=== PATIENT | female | born 1935 | race Hispanic/Latino ===

== ENCOUNTER 2017-03-18 08:04 | Day surgery (SDC) | payer MEDICARE, MEDICAID ==
[2017-03-17 11:39] VITALS: BMI 17.7
--- NOTE | 2017-03-18 01:47 | HP ---
REASON FOR ADMISSION: Left heart cath, possible angioplasty, abnormal stress test. BRIEF CLINICAL HISTORY: This is an 81-year-old female with past medical history of hypertension, significant TAVR at the [facility] on 11/23/2013 for critical aortic stenosis. Complaining of chest pain, so the patient was underwent a stress test and that showed anteroseptal reversible ischemia. The patient is scheduled for elective cardiac cath, possible angioplasty. PAST MEDICAL HISTORY: Past history significant for status post TAVR on 10/20/2014. Repeat echo post-TAVR showed ejection fraction of 65% to 70%. Trace aortic regurgitation, mild mitral regurgitation, mild tricuspid regurgitation with systolic pressure of 40. PREVIOUS CARDIAC WORKUP: As follows: The patient had a stress test dated 02/25/2017 that shows reversible ischemia, ejection fraction 74%. History of echo dated 10/22 that shows normal ejection fraction of 65% to 70% status post TAVR, trace aortic regurgitation, mild mitral regurgitation, mild tricuspid regurgitation. REVIEW OF SYSTEMS: As follows: As per HPI, otherwise negative. CURRENT MEDICATIONS: The patient is taking metoprolol 25, hydrochlorothiazide, aspirin 81 mg daily. PHYSICAL EXAMINATION VITAL SIGNS: Temperature afebrile, heart rate 60, blood pressure 145/65. HEENT: PERRLA, intact. NECK: Supple. No carotid bruit or thyromegaly. CHEST: Clear to auscultation. HEART: S1 and S2. Regular. ABDOMEN: Soft. EXTREMITIES: Clubbing and cyanosis negative. LABORATORY DATA: Blood workup is pending today. IMPRESSION: Abnormal stress test, status post transcatheter aortic valve replacement. Pre transcatheter aortic valve replacement, no significant coronary artery disease. Further recommendation after the cardiac catheterization, we will follow with you. Tres Catalan MD
[2017-03-18 08:43] LABS: BASO # 0.02 K/mm3 (0.0-2.0); BASO % 0.4 % (0.0-3.0); EOS # 0.1 (0.0-0.7); EOS % 2.1 % (1.5-5.0); GRAN # 2.53 (1.4-6.5); GRAN % 53.2 % (50.0-68.0); HEMATOCRIT 38.5 % (36.0-48.0); LYMPH # 1.8 (1.2-3.4); LYMPH % 37.2 % (22.0-35.0); MEAN CELL VOLUME 88.3 fl (80.0-105.0); MEAN CORPUSCULAR HEMOGLOBIN 29.6 pg (25.0-35.0); MEAN CORPUSCULAR HGB CONC 33.5 g/dl (31.0-37.0); MEAN PLATELET VOLUME 9.8 fl (7.0-11.0); MONO # 0.3 (0.1-0.6); MONO % 7.1 % (1.0-6.0); RED CELL DISTRIBUTION WIDTH 13.5 % (11.5-14.5); WHITE BLOOD COUNT 4.8 10^3/ul (4.5-11.0)
[2017-03-18 08:52] LABS: BLOOD UREA NITROGEN 21 mg/dL (7-21); CARBON DIOXIDE 25 mmol/L (21-33); CHLORIDE 108 mmol/L (98-107); CHOLESTEROL 217 mg/dL (130-200); GFR AFRICAN-AMERICAN > 60; GLUCOSE,RANDOM 96 mg/dL (70-110); POTASSIUM 4.1 mmol/L (3.6-5.0); SODIUM 142 mmol/L (132-148)
[2017-03-18 09:01] LABS: INR 1.05 (0.93-1.08); PARTIAL THROMBOPLASTIN TIME 29.9 Seconds (25.1-36.5)
[2017-03-18 09:02] VITALS: RESP 18
[2017-03-18] MEDS ORDERED: Midazolam 2 MG/2 ML VIAL ONE (10:18)
[2017-03-18] MEDS ORDERED: Iodixanol 320 MG/ML 100 ML BOTTLE IV ONE (10:19)
[2017-03-18] MEDS ORDERED: Iodixanol 320 MG/ML 200 ML BOTTLE IV ONE (10:19)
[2017-03-18] MEDS ORDERED: Iohexol 350mgl/ml 50 ML ONE (10:19)
[2017-03-18] MEDS ORDERED: Lidocaine 2% Inj (20ml) ONE (10:20)
[2017-03-18] MEDS ORDERED: Sodium Chloride 0.9% 1,000 ML IV SCH (11:45)
[2017-03-18 11:59] VITALS: TEMP 97.9
[2017-03-18 14:27] VITALS: O2SAT 97
[2017-03-18 15:33] VITALS: BP 138/75; PULSE 64
--- NOTE | 2017-03-18 16:32 | CARD ---
APPROVED REPORT Procedure(s) performed: Coronary Arteriogram Aortogram HISTORY hypertension , previous valve surgery (The previous valve surgery date was ), S/p TAVR for Severe on 11/23/2013 had abnormal stress test. INDICATION The indication(s) include : positive stress test, chest pain, dyspnea. CASE TECHNIQUE The patient was brought electively to the Cardiac Catheterization Laboratory in a fasting state and was prepped and draped in a sterile manner. The right femoral groin was infiltrated with 2% Lidocaine subcutaneous anesthesia. A 6 Fr x 11 cm Farzaneh sheath was inserted into the right femoral artery without difficulty. Coronary angiography was performed using coronary diagnostic catheters. The left coronary system was accessed and visualized with a Diagnostic ,6 Fr AL 1 catheter. The right coronary system was accessed and visualized with a Diagnostic ,6 Fr JR 4 catheter. An aortogram of the ascending aorta was performed. Closure device was deployed with a 6 Fr / 7 Fr MynxGrip without any complications. The patient tolerated the procedure well and there were no complications associated with the procedure. Vessel Analysis The patient's coronary anatomy is right dominant. The left main coronary artery is a large size vessel with intimal irregularities and without significant stenosis. Aneurysm of left Main noted The left main bifurcates to the left anterior descending and circumflex. The left anterior descending artery is a medium size vessel with diffuse calcification noted throughout this vessel and without significant stenosis. The first diagonal branch is a small size vessel with diffuse calcification noted throughout this vessel and without significant stenosis. The circumflex artery is a medium size vessel with diffuse calcification noted throughout this vessel and without significant stenosis. The first obtuse marginal branch is a medium size vessel with diffuse calcification noted throughout this vessel and without significant stenosis. The right coronary artery is a large size vessel with diffuse calcification noted throughout this vessel and without significant stenosis. There is a 55% stenosis in the mid segment. The right posterior descending artery is a medium size vessel with diffuse calcification noted throughout this vessel and without significant stenosis. The right posterolateral branch is a medium size vessel with diffuse calcification noted throughout this vessel and without significant stenosis. Left Ventricle LV gram not done as pt has TAVR, did not cross Aortic Valve. Asc. aortogram done, Dilated Asc aota bot NO AR,Aneurysm of left main noted. Conclusion S/p TAVR. 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 NO AR, Aneurysm of left main noted. Recommendations Medical Therapy Will review film with CTS at [facility] with Dr. Leung for left main aneurysm ( most likely medical treatment with periodic F/u Echo for TAVR valve for AR) CC; Drs. Joon Waite/ Schuyler.
--- NOTE | 2017-03-18 20:52 | CARD ---
APPROVED REPORT EKG Measurement Heart [id number] [id number] <Conclusion> Sinus bradycardia Otherwise normal ECG
== END 2017-03-18 17:36 | disposition home or self-care (01) ==
LOC: CATH 08:04
PROVIDERS: ATTEND Internal Medicine Cardiovascular Disease
DX: I25.10 Atherosclerotic heart disease of native coronary artery without angina pectoris (principal); I10 Essential (primary) hypertension; R06.00 Dyspnea, unspecified; Z95.2 Presence of prosthetic heart valve
CPT/HCPCS: 36415; 80048; 80061; 85025; 85610; 85730; 86850; 86900; 93005; 93454; 93567; 99152; C1760; C1769; C2629; J0360; J1644; J2250; J3010; J7040 ×2

== ENCOUNTER 2018-09-07 22:19 | Emergency (ER) | payer MEDICARE, MEDICAID ==
[2018-09-07 22:39] VITALS: RESP 18; TEMP 97.7; BMI 30.9
[2018-09-07 22:50] LABS: BASO # 0.02 K/mm3 (0.0-2.0); BASO % 0.3 % (0.0-3.0); EOS # 0.2 (0.0-0.7); EOS % 2.8 % (1.5-5.0); HEMOGLOBIN 13.4 g/dL (12.0-16.0); LYMPH # 2.6 (1.2-3.4); LYMPH % 43.7 % (22.0-35.0); MEAN CELL VOLUME 90.4 fl (80.0-105.0); MEAN CORPUSCULAR HEMOGLOBIN 29.1 pg (25.0-35.0); MEAN CORPUSCULAR HGB CONC 32.2 g/dl (31.0-37.0); MEAN PLATELET VOLUME 10.2 fl (7.0-11.0); MONO # 0.4 (0.1-0.6); RBC 4.6 10^6/uL (3.5-6.1); RED CELL DISTRIBUTION WIDTH 13.4 % (11.5-14.5)
[2018-09-07 23:00] LABS: ALB/GLOB RATIO 1.4 (1.1-1.8); ALBUMIN 4.2 g/dL (3.0-4.8); ALT/SGPT 23 U/L (7-56); AST/SGOT 25 U/L (14-36); BLOOD UREA NITROGEN 16 mg/dL (7-21); CALCIUM 9.2 mg/dL (8.4-10.5); GFR NON-AFRICAN AMERICAN > 60
[2018-09-07 23:11] LABS: TROPONIN I < 0.01 ng/mL
--- NOTE | 2018-09-07 23:14 | ED PDOC ---
Arrival/HPI - General Chief Complaint: Medical Clearance Time Seen by Provider: 09/07/18 22:34 Historian: Patient - History of Present Illness Narrative History of Present Illness (Text): 09/07/18 23:11 82 year old female, whose past medical history includes hypertension, presents to the emergency department with high blood pressure for 5 days. Patient is on carvedilol and metoprolol for her hypertension which she informs she was compliant with. Upon arrival patient blood pressure was 215/114. Patient denies feeling any symptoms. Patient denies any fevers, chills, headache, dizziness, chest pain, shortness of breath, cough, diaphoresis, abdominal pain, nausea, vomiting, diarrhea, back pain, neck pain, or any other complaint. 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[place]) - Renal Hx Renal Disorder: No - Endocrine/Metabolic Hx Endocrine Disorders: No - Hematological/Oncological Hx Blood Transfusions: No - Integumentary Hx Dermatological Disorder: No - Musculoskeletal/Rheumatological Hx Musculoskeletal Disorders: No - Gastrointestinal Hx Gastrointestinal Disorders: No - Genitourinary/Gynecological Hx Genitourinary Disorders: No - Psychiatric Hx Emotional Abuse: No Hx Physical Abuse: No Hx Substance Use: No - Surgical History Hx Valve Replacement: Yes (BOVINE TRANSCATHETER HEART VALVE) - Anesthesia Hx Anesthesia Reactions: No Hx Malignant Hyperthermia: No - Suicidal Assessment Feels Threatened In Home Enviroment: No Family/Social History - Physician Review Nursing Documentation Reviewed: Yes Family/Social History: No Known Family HX Smoking Status: Never Smoked Hx Alcohol Use: No Hx Substance Use: No Hx Substance Use Treatment: No Allergies/Home Meds Allergies/Adverse Reactions: Allergies Penicillins Allergy (Severe, Verified 09/07/18 22:27) ITCHING Home Medications: Home Meds Medication Instructions Recorded Confirmed HCTZ/Losartan Potassium [Hyzaar 1 tab PO DAILY 08/08/14 03/18/17 12.5 mg-50 mg] Metoprolol Succinate XL [Toprol XL] 25 mg PO DAILY 08/08/14 03/18/17 Aspirin [Adult Low Dose Aspirin EC] 81 mg PO DAILY 02/26/17 03/18/17 Review of Systems - Physician Review All systems were reviewed & negative as marked: Yes - Review of Systems Constitutional: absent: Fevers, Night Sweats Respiratory: absent: SOB, Cough Cardiovascular: absent: Chest Pain Gastrointestinal: absent: Abdominal Pain, Diarrhea, Nausea, Vomiting Musculoskeletal: absent: Back Pain, Neck Pain Neurological: absent: Headache, Dizziness Endocrine: absent: Diaphoresis Physical Exam Vital Signs Reviewed: Yes Vital Signs Temp Pulse Resp BP BP Pulse Ox 09/07/18 23:05 70 18 179/158 H 96 09/07/18 22:53 62 18 146/96 H 96 09/07/18 22:43 63 215/114 H 09/07/18 22:30 215/114 H 09/07/18 22:26 97.7 F 58 L 18 215/114 H 100 Temperature: Afebrile Blood Pressure: Hypertensive (Patient was hypertensive on arrival, Normal after IV hydralazine) Pulse: Bradycardic Respiratory Rate: Normal Appearance: Positive for: Well-Appearing, Non-Toxic, Comfortable Pain Distress: None Mental Status: Positive for: Alert and Oriented X 3 - Systems Exam Head: Present: Atraumatic, Normocephalic Pupils: Present: PERRL Extroacular Muscles: Present: EOMI Conjunctiva: Present: Normal Mouth: Present: Moist Mucous Membranes Neck: Present: Normal Range of Motion Respiratory/Chest: Present: Clear to Auscultation, Good Air Exchange. No: Res piratory Distress, Accessory Muscle Use Cardiovascular: Present: Regular Rate and Rhythm, Normal S1, S2. No: Murmurs Abdomen: No: Tenderness, Distention, Peritoneal Signs Back: Present: Normal Inspection Upper Extremity: Present: Normal Inspection. No: Cyanosis, Edema Lower Extremity: Present: Normal Inspection. No: Edema Neurological: Present: GCS=15, CN II-XII Intact, Speech Normal Skin: Present: Warm, Dry, Normal Color. No: Rashes Psychiatric: Present: Alert, Oriented x 3, Normal Insight, Normal Concentration Medical Decision Making ED Course and Treatment: 09/07/18 23:17 Impression: 82 year old female presents with high blood pressure. Plan: -- EKG -- Chest X-ray -- Hydralazine --Macrobid -- Urinalysis -- Reassess and disposition Prior Visits: Notes and results from previous visits were reviewed. Progress Notes: 09/08/18 00:46 Labs unremarkable with UA noted to be positive for trace leukocytes. Macrobid PO ordered. Patient reassured of benign lab findings and advised to follow up with her PCP for medication reconciliation. She demonstrates understanding and will follow up with her PCP. VSS. Opportunity for questions given and answered. Scripts given. She is asymptomatic for any somatic complaints at this time. She is stable for discharge. - Lab Interpretations Lab Results: Total Bilirubin 0.4 mg/dL (0.2-1.3) 09/07/18 22:30 AST 25 U/L (14-36) 09/07/18 22:30 ALT 23 U/L (7-56) 09/07/18 22:30 Alkaline Phosphatase 72 U/L (38-126) 09/07/18 22:30 Total Protein 7.2 g/dL (5.8-8.3) 09/07/18 22:30 Albumin 4.2 g/dL (3.0-4.8) 09/07/18 22:30 Globulin 2.9 gm/dL 09/07/18 22:30 Albumin/Globulin Ratio 1.4 (1.1-1.8) 09/07/18 22:30 09/07/18 22:30 09/07/18 22:30 Lab Results 09/08/18 00:06: Urine Color Straw, Urine Appearance Clear, Urine pH 7.0, Ur Specific [place] 1.010, Urine Protein Negative, Urine Glucose (UA) Negative, Urine Ketones Negative, Urine Blood Negative, Urine Nitrate Negative, Urine Bilirubin Negative, Urine Urobilinogen 0.2, Ur Leukocyte Esterase Trace H, Urine RBC 0 - 2, Urine WBC 0 - 2, Ur Epithelial Cells 0 - 2, Urine Bacteria None 09/07/18 22:30: Sodium 139, Potassium 4.2, Chloride 106, Carbon Dioxide 26, Anion Gap 11, BUN 16, Creatinine 0.9, Est GFR ( Amer) > 60, Est GFR (Non- Af Amer) > 60, Random Glucose 95, Calcium 9.2, Total Bilirubin 0.4, AST 25, ALT 23, Alkaline Phosphatase 72, Troponin I < 0.01, Total Protein 7.2, Albumin 4.2, Globulin 2.9, Albumin/Globulin Ratio 1.4 09/07/18 22:30: WBC 6.0, RBC 4.60, Hgb 13.4, Hct 41.6, MCV 90.4, MCH 29.1, MCHC 32.2, RDW 13.4, Plt Count 243, MPV 10.2, Neut % (Auto) 46.2 L, Lymph % (Auto) 43.7 H, [place] % (Auto) 7.0 H, Eos % (Auto) 2.8, Baso % (Auto) 0.3, Lymph # (Auto) 2.6, [place] # (Auto) 0.4, Eos # (Auto) 0.2, Baso # (Auto) 0.02, Absolute Neuts (auto) 2.77 I have reviewed the lab results: Yes - RAD Interpretation Radiology Orders: 09/07/18 22:37 CHEST PORTABLE [RAD] Stat - EKG Interpretation EKG Interpretation (Text): 09/08/18 02:06 Sinus bradycardia @ 57 bpm Prolonged ME interval, Slight QT prolongation. Interpreted by ED Physician: Yes Type: 12 lead EKG - Medication Orders Current Medication Orders: Hydralazine HCl (Apresoline) 10 mg IVP STAT MANUELITO Last Admin: 09/07/18 22:43 Dose: 10 mg IVP Administration Document 09/07/18 22:43 AD (Rec: 09/07/18 22:44 AD [facility] [id number] Charges for Administration # of IVP Administrations 1 JUL Pulse and Blood Pressure Document 09/07/18 22:43 AD (Rec: 09/07/18 22:44 AD [place] [id number]-) Pulse Pulse Rate (60-90) 63 Blood Pressure Blood Pressure (100/60-150/90) 215/114 - Scribe Statement The provider has reviewed the documentation as recorded by the Saji Ho Provider Scribe Attestation: All medical record entries made by the Scribe were at my direction and personally dictated by me. I have reviewed the chart and agree that the record accurately reflects my personal performance of the history, physical exam, m edical decision making, and the department course for this patient. I have also personally directed, reviewed, and agree with the discharge instructions and disposition. Disposition/Present on Arrival - Present on Arrival Any Indicators Present on Arrival: No History of DVT/PE: No History of Uncontrolled Diabetes: No Urinary Catheter: No History of Decub. Ulcer: No History Surgical Site Infection Following: None - Disposition Have Diagnosis and Disposition been Completed?: Yes Diagnosis: Hypertensive urgency, UTI (urinary tract infection) Disposition: HOME/ ROUTINE Disposition Time: 00:38 Patient Plan: Discharge Condition: STABLE Discharge Instructions (ExitCare): High Blood Pressure (DC), Asymptomatic Ba cteriuria, Medicines for High Blood Pressure Print Language: SERBIAN Additional Instructions: All medical record entries made by the Scribe were at my direction and personally dictated by me. I have reviewed the chart and agree that the record accurately reflects my personal performance of the history, physical exam, medical decision making, and the department course for this patient. I have also personally directed, reviewed, and agree with the discharge instructions and disposition. Please follow up with your PCP in 3-5 days for medication reconciliation If you begin to have worsening symptoms(headache, nausea, emesis), please feel free to return back to the ED Prescriptions: Nitrofurantoin Macrocrystals [Macrobid] 100 mg PO BID 3 Days #6 cap Referrals: Sd Waite MD [Family Provider] - Follow up with primary Forms: [employer] (Setswana)
[2018-09-07 23:17] VITALS: PULSE 61
[2018-09-08 00:20] LABS: URINE BILIRUBIN NEGATIVE (NEGATIVE); URINE BLOOD NEGATIVE (NEGATIVE); URINE GLUCOSE (UA) NEGATIVE (NEGATIVE); URINE LEUKOCYTE ESTERASE TRACE Leu/uL (NEGATIVE); URINE PROTEIN NEGATIVE mg/dL (<30 mg/dL); URINE UROBILINOGEN 0.2 E.U./dL (<1 E.U./dL)
[2018-09-08 00:22] LABS: URINE APPEARANCE CLEAR (CLEAR); URINE COLOR STRAW (YELLOW)
[2018-09-08 00:34] LABS: URINE EPITHELIAL CELLS 0 - 2 /hpf (0-5); URINE RBC 0 - 2 /hpf (0-2); URINE WBC 0 - 2 /hpf (0-6)
[2018-09-08 01:04] VITALS: BP 152/96; O2SAT 100
--- NOTE | 2018-09-08 08:38 | RAD ---
Date of service: 09/07/2018 HISTORY: sob COMPARISON: Chest radiographs 10/22/2014 6:39 p.m. and 9:18 p.m.. TECHNIQUE: 1 view obtained. FINDINGS: LUNGS: No active pulmonary disease. PLEURA: No significant pleural effusion identified, no pneumothorax apparent. CARDIOVASCULAR: Calcific atherosclerotic changes are seen related to the thoracic aorta. Cardiomegaly stable with prosthetic valvular stent reiterated. No pulmonary vascular congestion. OSSEOUS STRUCTURES: No significant abnormalities. VISUALIZED UPPER ABDOMEN: Normal. OTHER FINDINGS: None. IMPRESSION: Stable cardiomegaly. No interval pulmonary vascular congestion, infiltrate, pleural effusion or pneumothorax bilaterally.
--- NOTE | 2018-09-08 09:42 | CARD ---
APPROVED REPORT Date of service: 09/07/2018 EKG Measurement Heart [id number] <Conclusion> Sinus bradycardia with 1st degree AV block Leftward axis Borderline ECG
== END 2018-09-08 00:55 | disposition home or self-care (01) ==
LOC: ED 22:19
DX: N39.0 Urinary tract infection, site not specified (principal); I16.0 Hypertensive urgency; I10 Essential (primary) hypertension
CPT/HCPCS: 71045; 80053; 81001; 84484; 85025; 87086; 93005; 96374; 99284; J0360

== ENCOUNTER 2018-09-11 17:52 | Observation (INO) | payer MEDICARE, MEDICAID ==
[2018-09-11 18:41] LABS: BASO # 0.02 K/mm3 (0.0-2.0); BASO % 0.3 % (0.0-3.0); EOS # 0.1 (0.0-0.7); HEMOGLOBIN 12.8 g/dL (12.0-16.0); LYMPH # 1.8 (1.2-3.4); LYMPH % 30.4 % (22.0-35.0); MEAN CELL VOLUME 90.3 fl (80.0-105.0); MEAN CORPUSCULAR HEMOGLOBIN 29.5 pg (25.0-35.0); MEAN CORPUSCULAR HGB CONC 32.7 g/dl (31.0-37.0); MEAN PLATELET VOLUME 10.4 fl (7.0-11.0); MONO # 0.5 (0.1-0.6); MONO % 8.3 % (1.0-6.0); RBC 4.34 10^6/uL (3.5-6.1); RED CELL DISTRIBUTION WIDTH 13.5 % (11.5-14.5)
[2018-09-11 18:52] LABS: ALB/GLOB RATIO 1.4 (1.1-1.8); ALBUMIN 3.9 g/dL (3.0-4.8); ALT/SGPT 65 U/L (7-56); AST/SGOT 61 U/L (14-36); BLOOD UREA NITROGEN 24 mg/dL (7-21); CALCIUM 8.9 mg/dL (8.4-10.5); GFR NON-AFRICAN AMERICAN > 60
--- NOTE | 2018-09-11 19:00 | ED PDOC ---
Arrival/HPI - General Chief Complaint: Chest Pain Time Seen by Provider: 09/11/18 18:22 Historian: Patient - History of Present Illness Narrative History of Present Illness (Text): 09/11/18 18:56 This is an 82 y o F who has a h/o HTN presents c/o non radiating chest pain and palpitations that started at 4pm and lasted until 5pm. Patient states her symptoms subsided 15 minutes after she took an extra dose of her Metoprolol. Sh e denies any sob, dizziness, syncope, n/v, abd pain, fever, cough, chills, recent hospitalizations or travel. Past Medical History - Provider Review Nursing Documentation Reviewed: Yes - Travel History Have you recently traveled outside [place] w/in the past 3 mons?: No - Infectious Disease Hx of Infectious Diseases: None - Tetanus Immunization Tetanus Immunization: Unknown - Cardiac Hx Cardiac Disorders: Yes (valve replacement) Hx Hypertension: Yes - Pulmonary Hx Respiratory Disorders: No - Neurological Hx Paralysis: No - HEENT Hx HEENT Disorder: Yes Hx Cataracts: Yes (Bilaterally) Hx Deafness: Yes ([place]) - Renal Hx Renal Disorder: No - Endocrine/Metabolic Hx Endocrine Disorders: No - Hematological/Oncological Hx Blood Transfusions: No - Integumentary Hx Dermatological Disorder: No - Musculoskeletal/Rheumatological Hx Musculoskeletal Disorders: No - Gastrointestinal Hx Gastrointestinal Disorders: No - Genitourinary/Gynecological Hx Genitourinary Disorders: No - Psychiatric Hx Emotional Abuse: No Hx Physical Abuse: No Hx Substance Use: No - Surgical History Hx Valve Replacement: Yes (BOVINE TRANSCATHETER HEART VALVE) - Anesthesia Hx Anesthesia Reactions: No Hx Malignant Hyperthermia: No - Suicidal Assessment Feels Threatened In Home Enviroment: No Family/Social History Family/Social History: No Known Family HX Smoking Status: Never Smoked Hx Alcohol Use: No Hx Substance Use: No Hx Substance Use Treatment: No Allergies/Home Meds Allergies/Adverse Reactions: Allergies Penicillins Allergy (Severe, Verified 09/07/18 22:27) ITCHING Home Medications: Home Meds Medication Instructions Recorded Confirmed Metoprolol Succinate XL [Toprol XL] 50 mg PO DAILY 08/08/14 09/11/18 Aspirin [Adult Low Dose Aspirin EC] 81 mg PO BIDWM 02/26/17 09/11/18 Carvedilol [Coreg] 3.125 mg PO BID 09/11/18 09/11/18 Review of Systems - Review of Systems Constitutional: absent: Fevers Respiratory: absent: SOB, Cough Cardiovascular: Chest Pain, Palpitations. absent: Edema, Calf Pain, WRIGHT, Orthopnea, Syncope Gastrointestinal: absent: Abdominal Pain, Nausea, Vomiting Endocrine: absent: Diaphoresis Physical Exam Vital Signs Reviewed: Yes Vital Signs Temp Pulse Pulse Resp BP BP Pulse Ox 09/11/18 18:51 59 L 19 169/88 H 92 L 09/11/18 18:17 63 165/78 H 09/11/18 17:53 98.5 F 69 18 194/104 H 96 Temperature: Afebrile Blood Pressure: Hypertensive Pulse: Regular Respiratory Rate: Normal Appearance: Positive for: Well-Appearing, Non-Toxic, Comfortable Pain Distress: None Mental Status: Positive for: Alert and Oriented X 3 - Systems Exam Head: Present: Atraumatic, Normocephalic Pupils: Present: PERRL Extroacular Muscles: Present: EOMI Conjunctiva: Present: Normal Ears: Present: Normal Mouth: Present: Moist Mucous Membranes Pharnyx: Present: Normal Neck: Present: Normal Range of Motion. No: JVD Respiratory/Chest: Present: Clear to Auscultation, Good Air Exchange. No: Respiratory Distress Cardiovascular: Present: Regular Rate and Rhythm, Normal S1, S2. No: Murmurs Abdomen: Present: Normal Bowel Sounds. No: Tenderness, Distention Back: Present: Normal Inspection Upper Extremity: Present: Normal Inspection, NORMAL PULSES. No: Edema Lower Extremity: Present: Normal Inspection, NORMAL PULSES. No: Edema Neurological: Present: CN II-XII Intact, Speech Normal, Motor Func Grossly Intact, Normal Sensory Function Skin: Present: Warm, Dry, Normal Color Psychiatric: Present: Alert, Oriented x 3, Normal Insight, Normal Concentration Medical Decision Making ED Course and Treatment: 09/11/18 19:02 Patient presents w/above hx and exam, given this plan is cardiac w/u. 09/11/18 19:20 Preliminary findings on Chest X-ray shows cardiomegaly, as interpreted by me. 09/11/18 19:35 Case d/w Dr. Sd Waite who wants pt to be admitted for obs w/a consult to Dr. Payan. Results of w/u and plan to admit to obs d/w patient who is agreeable w/POC. - Lab Interpretations Lab Results: Total Bilirubin 0.3 mg/dL (0.2-1.3) 09/11/18 18:00 AST 61 U/L (14-36) H D 09/11/18 18:00 ALT 65 U/L (7-56) H 09/11/18 18:00 Alkaline Phosphatase 88 U/L (38-126) 09/11/18 18:00 Total Protein 6.6 g/dL (5.8-8.3) 09/11/18 18:00 Albumin 3.9 g/dL (3.0-4.8) 09/11/18 18:00 Globulin 2.7 gm/dL 09/11/18 18:00 Albumin/Globulin Ratio 1.4 (1.1-1.8) 09/11/18 18:00 - RAD Interpretation Radiology Orders: 09/11/18 18:22 CHEST PORTABLE [RAD] Stat - EKG Interpretation EKG Interpretation (Text): 09/11/18 19:02 NSR rate 67, LAD, first degree AVB, nl QRS and QT intervals, no ST elevations or depressions. Interpretation abnormal, non ischemic. Interpreted by ED Physician: Yes Type: 12 lead EKG - Medication Orders Current Medication Orders: Aspirin (Aspirin) 325 mg PO STAT STA Stop: 09/11/18 18:55 Disposition/Present on Arrival - Present on Arrival Any Indicators Present on Arrival: No History of DVT/PE: No History of Uncontrolled Diabetes: No Urinary Catheter: No History of Decub. Ulcer: No History Surgical Site Infection Following: None - Disposition Have Diagnosis and Disposition been Completed?: Yes Diagnosis: Chest pain, Palpitations Disposition: HOSPITALIZED Disposition Time: 19:35 Patient Plan: Admission, Telemetry Condition: STABLE Discharge Instructions (ExitCare): Chest Pain (ED)
[2018-09-11 19:02] LABS: B-TYPE NATRIURETIC PEPTIDE 1350 pg/mL (0-450); TROPONIN I < 0.01 ng/mL
[2018-09-11 20:06] LABS: URINE BILIRUBIN NEGATIVE (NEGATIVE); URINE BLOOD NEGATIVE (NEGATIVE); URINE GLUCOSE (UA) NEGATIVE (NEGATIVE); URINE LEUKOCYTE ESTERASE NEGATIVE Leu/uL (NEGATIVE); URINE PROTEIN NEGATIVE mg/dL (<30 mg/dL)
[2018-09-11 20:10] LABS: URINE APPEARANCE CLEAR (CLEAR); URINE COLOR YELLOW (YELLOW)
[2018-09-11 20:42] VITALS: BMI 30.9
--- NOTE | 2018-09-12 05:14 | CP.PCM.PN ---
Subjective - Date & Time of Evaluation Date of Evaluation: 09/12/18 Time of Evaluation: 05:14 - Subjective Subjective: Patient was seen at bedside. She was seen at bedside because I was asked by the resident to sign the order for Motrin and Norvasc. She has no complaints at this time. Denies headache, dizziness, heaviness, lightheadedness, chest pain, shortness of breath, weakness, paresthesia. This 82-year-old woman was admitted with Complaint of chest pain. Has past medical history of hypertension, cataract surgery, pelvic fracture, wrist fracture, hemorrhagic cyst in the right kidney, status post TAVR. Objective - Vital Signs/Intake and Output Vital Signs (last 24 hours): Temp Pulse Resp BP Pulse Ox 97.9 F 49 L 20 160/65 H 96 09/12/18 00:01 09/12/18 02:00 09/12/18 00:01 09/12/18 00:01 09/12/18 00:01 - Labs Labs: 09/11/18 18:00 09/11/18 18:00 - Constitutional Appears: Well, No Acute Distress - Head Exam Head Exam: ATRAUMATIC, NORMAL INSPECTION, NORMOCEPHALIC - Eye Exam Eye Exam: Normal appearance - ENT Exam ENT Exam: Normal External Ear Exam - Neck Exam Neck Exam: Normal Inspection - Respiratory Exam Respiratory Exam: NORMAL BREATHING PATTERN - Cardiovascular Exam Cardiovascular Exam: absent: JVD - GI/Abdominal Exam GI & Abdominal Exam: absent: Distended - Rectal Exam Rectal Exam: Deferred - Exam Additional comments: Deferred. - Extremities Exam Extremities Exam: Normal Inspection - Back Exam Back Exam: NORMAL INSPECTION - Neurological Exam Neurological Exam: Alert, Awake - Psychiatric Exam Psychiatric exam: Normal Affect, Normal Mood - Skin Skin Exam: Normal Color Assessment and Plan - Assessment and Plan (Free Text) Assessment: Chest pain. Hypertension. Status post T AVR History of cataract surgery History of pelvic fracture History of wrist fracture History of hemorrhagic cyst in right kidney Plan: Motrin as ordered. Norvasc 5 mg p.o. x1. Recheck blood pressure in 1 hour. Continue present management.
[2018-09-12 07:43] LABS: BASO # 0.01 K/mm3 (0.0-2.0); BASO % 0.2 % (0.0-3.0); EOS # 0.2 (0.0-0.7); EOS % 3.9 % (1.5-5.0); HEMOGLOBIN 12.4 g/dL (12.0-16.0); LYMPH # 1.7 (1.2-3.4); LYMPH % 36.5 % (22.0-35.0); MEAN CELL VOLUME 89.8 fl (80.0-105.0); MEAN CORPUSCULAR HEMOGLOBIN 28.8 pg (25.0-35.0); MEAN CORPUSCULAR HGB CONC 32.1 g/dl (31.0-37.0); MONO # 0.4 (0.1-0.6); MONO % 8.9 % (1.0-6.0); RBC 4.3 10^6/uL (3.5-6.1); RED CELL DISTRIBUTION WIDTH 13.5 % (11.5-14.5); WHITE BLOOD COUNT 4.6 10^3/uL (4.5-11.0)
[2018-09-12 07:59] LABS: BLOOD UREA NITROGEN 18 mg/dL (7-21); CALCIUM 8.5 mg/dL (8.4-10.5); GFR NON-AFRICAN AMERICAN > 60
[2018-09-12 08:07] LABS: TROPONIN I < 0.01 ng/mL
--- NOTE | 2018-09-12 09:25 | RAD ---
Date of service: 09/11/2018 HISTORY: chest pain COMPARISON: 09/07/2018 TECHNIQUE: 1 view obtained. FINDINGS: LUNGS: No active pulmonary disease. PLEURA: No significant pleural effusion identified, no pneumothorax apparent. CARDIOVASCULAR: Mild aortic calcification Mild cardiomegaly no pulmonary vascular congestion. OSSEOUS STRUCTURES: No significant abnormalities. VISUALIZED UPPER ABDOMEN: Normal. OTHER FINDINGS: None. IMPRESSION: No active disease.
[2018-09-12] MEDS: Metoprolol Succinate 50 mg XL Tab PO SCH (10:29)
--- NOTE | 2018-09-12 14:02 | CP.PCM.PCO ---
Physician Communication Note - Physician Communication Note Physician Communication Note: stress test pending
--- NOTE | 2018-09-12 17:42 | CARD ---
APPROVED REPORT Date of service: 09/11/2018 EKG Measurement Heart [id number] [id number] <Conclusion> Sinus rhythm with 1st degree AV block Left axis deviation Poor R wave progression Abnormal ECG
--- NOTE | 2018-09-12 21:19 | CON ---
DATE: 09/12/2018 CONSULT SERVICE: Cardiology. REASON FOR CONSULTATION AND FOLLOWUP: Chest pain, palpitation, uncontrolled hypertension and headache, history of TAVR, nonobstructive coronary artery disease and cardiac catheterization a year ago. BRIEF CLINICAL HISTORY: This is an 82-year-old female with a past medical history significant for hypertension, nonobstructive coronary artery disease, status post cardiac catheterization 03/18/2017, history of severe aortic stenosis, status post TAVR at [facility] on 11/23/2013, for critical aortic stenosis, came in to the emergency room with complaint of chest pain, palpitation and uncontrolled hypertension. At one point, the patient's blood pressure 215/111, feels severe terrible headache as well. PAST MEDICAL HISTORY: Significant for history of TAVR transcutaneous aortic valve replacement on 11/23/2013, hypertension, hyperlipidemia, left main aneurysm, came in with complaint of palpitation and headache. PREVIOUS CARDIAC WORKUP: As follows; the patient has most recently cardiac catheterization done on 03/18/2017, that revealed nonobstructive coronary artery disease, RCA mid 55% stenosis, non-flow limiting. No significant AR aneurysm. No significant aortic regurgitation noted on aortogram, but aneurysm in the left main noted. Recommendations; medical treatment recommended, followup echo for TAVR is recommended. Dilated ascending aorta, but no significant AR noted. Left main irregular valve, significant aneurysm in the left main noted on cardiac catheterization dated as mentioned 03/18/2017. Prior to that, the patient had echocardiography done in Dr. Payan's office that shows mild MR, mild TR status post TAVR dated 10/22/2016. The patient had a stress test dated 02/25/2017, that was abnormal reversible ischemia, following that the patient had a cardiac catheterization done. REVIEW OF SYSTEMS: As per HPI. Negative except HPI. The patient had uncontrolled hypertension on admission. CURRENT MEDICATIONS: The patient is taking at home; aspirin 81 mg daily, metoprolol 50 mg and Coreg 3.125 mg daily. PHYSICAL EXAMINATION: GENERAL: Height of the patient 5 feet 6 inches. Weight of the patient 136 pounds. Body mass index 24.2 kg/m2. VITAL SIGNS: Rest of the vitals, temperature afebrile, heart rate 50 and blood pressure 168/85. HEENT: PERRLA. Extraocular muscles intact. NECK: Supple. No carotid bruit or thyromegaly. CHEST: Clear to auscultation. HEART: S1 and S2, regular. ABDOMEN: Soft. EXTREMITIES: Clubbing and cyanosis negative. LABORATORY DATA: EKG shows normal sinus, first degree AV block, heart rate of 67. The rest of the blood workup WBC 4.6, hemoglobin 12.4, hematocrit 38.6 and platelet count 192. Chemistry shows sodium 139, potassium 4, chloride 108, carbon 28, anion gap of 7, BUN 18, creatinine 0.8. Troponin 0.0 x2 negative and as mentioned EKG is normal sinus, heart rate 67. IMPRESSION: An 82-year-old female with past medical history significant for severe aortic stenosis, status post transcatheter aortic valve replacement in 2014, status post cardiac catheterization in 02/2017, nonobstructive coronary artery disease limited only to the distal right coronary artery and left main aneurysm, admitted with uncontrolled hypertension, palpitation, chest pain and headache. So far troponin remains negative. RECOMMENDATION: We will get lipid profile, TSH, and hemoglobin A1c. Echo to assess LV function, a stress test tomorrow. Resume back metoprolol 50 mg. The patient started on Norvasc 5 mg, but we will add on 10 mg of Zestril stat and then everyday, followed by 10 mg of hydralazine p.r.n. for systolic more than 70 and we will get a stress test tomorrow. For now, the patient is already on Coreg 3.125 mg daily and metoprolol 50 mg daily. We will get the echo and after that maybe we will discontinue Coreg and leave metoprolol to give after the echo. We will aggressively control her blood pressure, so far no evidence of acute SD. We will follow with you. Thank you Dr. Waite for providing us the opportunity in taking care of the patient, Mi Layton. Tres Catalan MD
[2018-09-13 06:40] LABS: BASO # 0.01 K/mm3 (0.0-2.0); BASO % 0.2 % (0.0-3.0); EOS # 0.2 (0.0-0.7); EOS % 3.3 % (1.5-5.0); HEMOGLOBIN 13.2 g/dL (12.0-16.0); LYMPH # 2.5 (1.2-3.4); LYMPH % 38.6 % (22.0-35.0); MEAN CELL VOLUME 90.2 fl (80.0-105.0); MEAN CORPUSCULAR HEMOGLOBIN 28.8 pg (25.0-35.0); MEAN PLATELET VOLUME 10.1 fl (7.0-11.0); MONO # 0.4 (0.1-0.6); RBC 4.58 10^6/uL (3.5-6.1); RED CELL DISTRIBUTION WIDTH 13.6 % (11.5-14.5); WHITE BLOOD COUNT 6.4 10^3/uL (4.5-11.0)
[2018-09-13 06:49] LABS: ALB/GLOB RATIO 1.5 (1.1-1.8); ALT/SGPT 38 U/L (7-56); AST/SGOT 31 U/L (14-36); BLOOD UREA NITROGEN 26 mg/dL (7-21); GFR NON-AFRICAN AMERICAN > 60; HDL CHOLESTEROL 49 mg/dL (29-60)
[2018-09-13 06:59] LABS: LDL CHOLESTEROL 126 mg/dL (0-129)
[2018-09-13] MEDS ORDERED: Aminophylline 25 mg/ml Inj ONE (08:11)
--- NOTE | 2018-09-13 11:34 | CARD ---
APPROVED REPORT Date of service: 09/13/2018 EXAM: Two-dimensional and M-mode echocardiogram with Doppler and color Doppler. INDICATION Chest Pain 2D DIMENSIONS Left Atrium (2D)4.0 (1.6-4.0cm)IVSd1.4 (0.7-1.1cm) LVDd3.6 (3.9-5.9cm)PWd1.3 (0.7-1.1cm) LVDs2.7 (2.5-4.0cm)FS (%) 25.2 % LVEF (%)50.7 (>50%) M-Mode DIMENSIONS Aortic Root2.00 (2.2-3.7cm) Aortic Valve AoV Peak Pnaqlydw462.0cm/Walker Peak GR.15mmHgLVOT Peak Ehharzxq867.0cm/s LVOT VTI31.90cm Mitral Valve MV E Wwkpqgrk99.8cm/sMV A Mgaxhyqd01.0cm/sE/A ratio1.1 TDI E/Lateral E'0.0E/Medial E'0.0 Tricuspid Valve TR Peak Qallphkp668zb/sRAP [id number] Peak Gr.10mmHg [id number] LEFT VENTRICLE The left ventricle is normal size. There is mild concentric left ventricular hypertrophy. The left ventricular function is normal.EF-55% There is normal LV segmental wall motion. The left ventricular diastolic function is normal. No left ventricle thrombus noted on this study. There is no ventricular septal defect visualized. There is no left ventricular aneurysm. There is no mass noted in the left ventricle. RIGHT VENTRICLE The right ventricle is normal size. There is normal right ventricular wall thickness. The right ventricular systolic function is normal. ATRIA The left atrium is borderline dilated. The right atrium size is normal. The interatrial septum is intact with no evidence for an atrial septal defect. AORTIC VALVE There is an eccentric jet of aortic insufficiency . S/p TAVR, Mild AR MITRAL VALVE The mitral valve is thickened but opens well. Mitral regurgitation is mild. There is no mitral valve stenosis. There is no evidence of mitral valve prolapse. TRICUSPID VALVE The tricuspid valve is normal in structure. There is trace tricuspid regurgitation.RVSP-20 mmof hg. There is no tricuspid valve stenosis. There is no tricuspid valve prolapse or vegetation. PULMONIC VALVE The pulmonary valve is normal in structure. There is no pulmonic valvular regurgitation. There is no pulmonic valvular stenosis. GREAT VESSELS The aortic root is mildly enlarged. The ascending aorta is Mildly dilated, 4.25 cm. The pulmonary artery is normal. The IVC is normal in size and collapses >50% with inspiration. PERICARDIAL EFFUSION There is no pleural effusion. There is no pericardial effusion. <Conclusion> The left ventricle is normal size. There is mild concentric left ventricular hypertrophy. The left ventricular function is normal.EF-55% There is an eccentric jet of aortic insufficiency . S/p TAVR, Mild AR Mitral regurgitation is mild. There is trace tricuspid regurgitation.RVSP-20 mmof hg. The aortic root is mildly enlarged. The ascending aorta is Mildly dilated, 4.25 cm. There is no pericardial effusion. No thrombus or vegetation noted.
[2018-09-13] MEDS: Metoprolol Succinate 50 mg XL Tab PO SCH (12:10)
--- NOTE | 2018-09-13 12:14 | CP.PCM.PCO ---
Physician Communication Note - Physician Communication Note Physician Communication Note: stress test results pending
--- NOTE | 2018-09-13 12:23 | PN ---
DATE: 09/13/2018 REASON FOR THE CONSULTATION AND FOLLOWUP: Chest pain, palpitation, uncontrolled hypertension, headache, history of TAVR, nonobstructive coronary artery disease, history of cardiac catheterization one year ago. SUBJECTIVE: The patient denies any chest pain. OBJECTIVE: GENERAL: Not in apparent distress. Awaiting to go for a stress test today. VITAL SIGNS: Temperature afebrile. Heart rate 54 and blood pressure 174/86. HEENT: PERRLA. Extraocular muscles intact. NECK: Supple. No carotid bruit or thyromegaly. CHEST: Clear to auscultation. HEART: S1 and S2, regular. ABDOMEN: Soft. EXTREMITIES: Clubbing and cyanosis negative. LABORATORY DATA: Blood workup as follows; WBC 6.4, hemoglobin 13.8, hematocrit 41.3, and platelet count 215. Chemistry shows sodium 140, potassium 4, chloride 103, carbon dioxide 31, anion gap 10, BUN 26, and creatinine 0.9. TSH 8.24. Total cholesterol 211, LDL 126, HDL 49, triglyceride 105. Troponin 0.01, negative. IMPRESSION: An 82-year-old female with past medical history significant for severe aortic stenosis, status post transcutaneous aortic valve replacement at [facility], admitted with uncontrolled hypertension. admitting blood pressure 215/111, history of cardiac catheterization 03/18/2017, nonobstructive coronary artery disease, aneurysm in the left main. The patient was complaining also at the time of admission palpitation but here the patient remains in telemetry bradycardic, but pressure was stabilizing, still on higher side. Started on lisinopril, from 10 mg we will increase to 20 mg. Currently, the patient is on Coreg 3.125 and metoprolol. In view of above, we will discontinue Coreg. Continue metoprolol 50. We do not want to give two beta-blockers to prevent bradycardia. I have increased lisinopril to 20 mg from today. The patient is scheduled for a stress test today and echo. Further recommendation after the stress test. Goal is to optimize medical treatment. Continue aspirin. Continue atorvastatin. We will add on Synthroid for hypothyroidism. TSH is elevated. Continue p.r.n. hydralazine for systolic more than 170. We will put at least 20 mg of atorvastatin because of hyperlipidemia. Once the patient stabilizes, we will discontinue as mentioned Coreg. Further recommendation of initial workup, so far no evidence of acute myocardiac infarction. History of last stress test in 2016 was abnormal, so the patient underwent cardiac catheterization on 03/18/2017 that shows nonobstructive coronary artery disease. Last echo in Dr. Payan's office shows mild MR, mild TR, status post TAVR dated 09/2016. We will follow up after the stress test and echo. So, in summary, following changes have been made. Lisinopril 20 mg added, Coreg has been discontinued, aspirin continued, atorvastatin added, as well as Synthroid added. We will wait for hemoglobin A1c. Thank you Dr. Waite, for providing us the opportunity in taking care of the patient, Mi Layton. Tres Catalan MD
--- NOTE | 2018-09-13 12:40 | PN ---
DATE: 09/12/2018 DAILY PROGRESS NOTE SUBJECTIVE: The patient is an 82-year-old female with a past medical history positive for hypertension, status post TAVR in 2013 and a history of pelvic fracture in 2014, wrist fracture in 2006, status post cataract surgery who was admitted to the [facility] on the 09/11 complaining of chest pain which was non-radiating, but associated with shortness of breath, palpitations, diaphoresis and nausea. She was seen today, the patient is feeling well. She has no current complaints although slight headache lingers. Lungs is clear to auscultation and percussion. Heart is regular. The patient was evaluated with Dr. Catalan and Dr. Payan Cardiology. She was started on intravenous Lasix 20 mg, lisinopril 10 mg p.o. and hydralazine p.r.n. This morning, laboratory shows, white blood cell count to be 4.6, hemoglobin and hematocrit 4.4 and 38.6 to be respectively and platelet count is 192. Sodium is 139, potassium 4.2, BUN 18, creatinine 0.8, glucose is 98 and blood pressure is 161/89 with a heart rate of 55. The patient will be followed closely. She will be undergoing echocardiography and myocardial stress testing. Case reviewed and discussed with Cardiology. Sd Waite MD MTDKoki
--- NOTE | 2018-09-13 17:05 | HP ---
HISTORY OF PRESENT ILLNESS: The patient is an 82-year-old female who presents to the emergency room complaining of chest pain. The pain was of rather sudden onset, was crushing, non-radiating, but was associated with nausea, palpitations, shortness of breath and diaphoresis. The patient took an extra dose of her metoprolol and the symptoms subsided somewhat; however, they recurred after a short period of time, therefore, she presented to the emergency room. Of note, the patient was in the emergency room of [facility] few days earlier complaining of a rather severe headache, at which time it was found her blood pressure was markedly elevated with a diastolic blood pressure in the 100s. Since then the patient has been evaluated in the office and her blood pressure was much lower, diastolic was 85, systolic blood pressure was 140. PAST MEDICAL HISTORY: The patient is known to have a past medical history positive for hypertension. She is status post cataract surgery, status post pelvic fracture in 2013. She fractured her wrist in a fall at home in 2006. 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 In 2013 the patient underwent TAVR with aortic valve at [facility]. SOCIAL HISTORY: The patient is, she never smoked. She is a nonalcoholic drinker. ALLERGIES: SHE IS KNOWN TO BE ALLERGIC TO PENICILLIN WHICH CAUSES ITCHING IN THE PAST. MEDICATIONS: At the time of admission include; metoprolol succinate 50 mg once a day, aspirin 81 mg once a day, Coreg 3.125 mg twice a day. REVIEW OF SYSTEMS: Otherwise unremarkable. PHYSICAL EXAMINATION: VITAL SIGNS: Her blood pressure is 194/104, heart rate is 63 beats per minute, and she is afebrile. HEAD, EYES, EARS, NOSE AND THROAT: Unremarkable. NECK: Supple with no lymphadenopathy. No goiter. LUNGS: Clear to auscultation and percussion. HEART: Regular. No murmurs are appreciated. ABDOMEN: Soft and nontender with no organomegaly. EXTREMITIES: Free of cyanosis, clubbing, or edema. NEUROLOGIC: The patient is awake, alert and oriented with no focal neurological signs. LABORATORY STUDIES: Showed a white blood cells count to be 6.0, hemoglobin and hematocrit are 12.8 and 39.2 respectively, platelet count is 216. Sodium is 141, potassium 4.1, blood urea nitrogen is 24, creatinine 0.9, nonfasting glucose is 105. Urinalysis is negative. Troponins are negative. BMP is slightly elevated at 1350. EKG shows regular sinus rhythm with first-degree AV block and left axis deviation. Chest x-ray shows no acute disease. So, the patient is admitted. Consultation from Dr. Payan, and Dr. Catalan the brush maker machine are called. The patient will be reevaluated in the morning. Sd Waite MD
--- NOTE | 2018-09-13 21:53 | CARD ---
APPROVED REPORT Date of service: 09/13/2018 Protocol: LEXISCAN Test Type: Lexiscan Sestamibi Stress Test Attending Physician: Dr. Tres Catalan Referring Physician: Dr. Sd Waite Test Indications: Chest Pain Height:5 ft 4 in Weight:136lbs Medications: Aspirin, Coreg, Lasix, Zestril Toprol XL, Medical History: 82 year ild female with a history of HTN,CAD compression fractures, cataracts, valve replacement Target HR: 139 bpm Resting ECG: normal Resting Heart Rate: 54 bpm Resting Blood Pressure: 174/86mmHg Submaximum (85%): 118 bpm PROCEDURE Pharmacologic stress testing was performed using 0.4mg per 5ml of regadenoson given intravenously over 7-10 seconds. Reversal agent aminophyline 100 mg, given intravenously for Dyspnea. POST EXERCISE Reason for Termination: Protocol completed Target HR: No Max HR: 54 bpm 54% of Maximum Predicted HR: 139 bpm Exercise duration: 00:32 min:sec, 0 Stage Exercise capacity: 1.0METs Max Blood Pressure: 180/90mmHg Blood Pressure response to exercise: normal resting BP - appropriate response Heart Rate response to exercise: appropriate Chest Pain: No, none Angina index: 0 Arrhythmia: No, none ST Change: No, none Deviation: 0 mm INTERPRETATION Stress EKG Conclusion: Negative stress test for Ischemia and for chest pain, Nuclear scan to follow. Signed by Tres Catalan Electronically Approved: 09/13/2018 09:03:07 EXAM: Myocardial Perfusion REST/STRESS Stress Test Type: Pharmacologic Imaging Protocol The imaging protocol used to acquire images was Rest Tc-99m/stress Tc-99m 1 day Rest Spect myocardial perfusion imaging was performed in supine position 45 minutes following the injection of 10.3 mCi of Tc-99 Myoview. At peak stress, the patient was injected intravenously with 30.2mCi of Tc-99 tetrofosmin after an infusion time of 0 minutes and 10 seconds. Gated Stress Spect was performed 65 minutes after intravenous Tc-99 Myoview injection. The images were gated to evaluate regional wall motion and calculate ventricular ejection fraction.Images were reconstructed using backfilter projection method in short horizontal and verticle long axis. Spect slices were generated. LV Perfusion The quality of the study is good. The left ventricle is normal in size. The right ventricle is unremarkable. The lung uptake is normal. The distribution of tracer reveals mildly decreased perfusion involving distal anteroseptal wall on the stress study. The remainder of the LV myocardium is unremarkable. The rest myocardial perfusion study shows no significant change. Wall Motion Wall motion study shows good contractility of the left ventricle. LVEF = 60%. Conclusion 1. Probably normal SPECT myocardial perfusion study. 2. Fixed, mild, distal anteroseptal defect is most likely due to breast attenuation. 3. Normal gated wall motion of the left ventricle. 4. In comparison with the last study of 02/25/2017, the anteroseptal defect appears fixed in the current study.
[2018-09-14] MEDS ORDERED: Levothyroxine 25 MCG TAB PO SCH (06:00)
[2018-09-14 06:48] VITALS: O2SAT 96
[2018-09-14] MEDS: Metoprolol Succinate 50 mg XL Tab PO SCH (09:02)
[2018-09-14 12:54] VITALS: BP 155/86; PULSE 57; RESP 101; TEMP 97.8
--- NOTE | 2018-09-14 13:03 | PN ---
DATE: 09/14/2018 REASON FOR THE CONSULTATION AND FOLLOWUP: Chest pain, palpitation, uncontrolled hypertension, headache, history of TAVR, nonobstructive coronary artery disease, history of cardiac catheterization one year ago. SUBJECTIVE: The patient denies any chest pain, shortness of breath, any palpitation. PHYSICAL EXAMINATION: GENERAL: Not in apparent distress. VITAL SIGNS: Temperature afebrile. Heart rate 60. Blood pressure 149/83. HEENT: PERRLA. Extraocular muscles intact. NECK: Supple. No carotid bruit or thyromegaly. CHEST: Clear to auscultation. HEART: S1, S2 regular. ABDOMEN: Soft. EXTREMITIES: Clubbing and cyanosis negative. LABORATORY DATA: Blood workup; WBC 6.5, hemoglobin 13.3, hematocrit 41.3, platelet count 215. Chemistry shows sodium 140, potassium 4, chloride 103, carbon dioxide 31, anion gap 10, BUN 26, and creatinine 0.9. TSH as of yesterday is 8.24. The patient had an echocardiography done yesterday that revealed normal LV size, LV function, 55% ejection fraction, mild concentric LVH, eccentric jet of aortic insufficiency, mild aortic regurgitation, status post TAVR, mild mitral regurgitation, trace tricuspid regurgitation, RV systolic pressure 20, ascending aorta is mildly dilated, size 4.25 cm in diameter. The patient had a stress test done yesterday, 09/13/2018, probably normal myocardial perfusion study, fixed mild anterior septal defect due to breast attenuation. In comparison to last study, anterior septal defect appears fixed in the current study as compared to 02/25/2017. IMPRESSION: An 82-year-old female with a past medical history significant for nonobstructive coronary artery disease, severe aortic stenosis, status post transcatheter aortic valve replacement done, last catheterization because abnormal stress test dated 03/18/2019, nonobstructive coronary artery disease, aneurysm of left main noted. Admitted yesterday with uncontrolled hypertension 215/111. Repeat noninvasive workup shows negative stress test. Echo preserved LV function, mild aortic regurgitation and status post transcatheter aortic valve replacement, mild mitral regurgitation, trace tricuspid regurgitation. RECOMMENDATION: Aggressive control of blood pressure. The patient was on 2 beta-blockers, Coreg and metoprolol. So, the Coreg was discontinued and metoprolol increased to 50 mg once a day for metoprolol succinate, lisinopril was added 20 mg daily, hydralazine p.r.n., baby aspirin 81 mg daily, Lasix 20, atorvastatin 20 mg daily because of hyperlipidemia and levothyroxine was added. Medically, the patient is stable. Possible discharge planning. We will discontinue telemetry. No further cardiac workup is planned or warranted. Thank you Dr. Waite, for providing us the opportunity in taking care of the patient, Mi Layton. Follow up with Dr. Payan upon discharge. Tres Catalan MD
--- NOTE | 2018-09-15 03:37 | DS ---
DISCHARGE SUMMARY: The patient is an 82-year-old female with a past medical history positive for hypertension, status post TAVR in 2013, history of a pelvic fracture in 2014, wrist fracture in 2006, status post cataract surgery who was admitted to the [facility] on 09/11/2018, complaining of chest pain. The chest pain had subsided during the hospital stay; however, the patient does say that the pain was associated with shortness of breath, palpitations, diaphoresis and nausea. She was evaluated by the cardiologists, Dr. Catalan and Dr. Payan. She underwent echocardiography and myocardial stress testing, was found to have a 50.7% ejection fraction. There was a fixed anteroseptal defect on stress testing and that showed a 60% ejection fraction. When seen today, the patient is feeling comfortable. She is looking forward to discharge to home. Her vital signs are stable. So the patient is discharged to home in improved condition. She will be followed up in office visit next week. She is continuing to take her medications as prior to hospitalization, which include aspirin 81 mg, metoprolol 50 mg and this will be increased to twice a day rather than just once a day. She is also taking Coreg 3.125 mg twice a day. The patient will be followed up post discharge. FINAL DIAGNOSES 1. Chest pain. 2. Coronary artery disease. 3. Hypertension. 4. Status post transcatheter aortic valve replacement. Sd Waite MD
== END 2018-09-14 15:05 | disposition home or self-care (01) ==
LOC: ED 17:52 → ERH 19:37 → 2RSO 21:14
PROVIDERS: ADMIT Internal Medicine; ATTEND Internal Medicine
DX: R07.9 Chest pain, unspecified (principal); I25.10 Atherosclerotic heart disease of native coronary artery without angina pectoris; I10 Essential (primary) hypertension; E78.5 Hyperlipidemia, unspecified; E03.9 Hypothyroidism, unspecified; Z95.2 Presence of prosthetic heart valve; Z88.0 Allergy status to penicillin; Z87.81 Personal history of (healed) traumatic fracture
CPT/HCPCS: 36415; 71045; 78452; 80048; 80053; 80061; 81003; 82550; 83036; 83615; 83735; 83880; 84100; 84443; 84484; 85025; 93005; 93017; 93306; 96374; 96376; 99285; A9502; G0378; J0280; J1940; J2785